=== PATIENT | female | born 1995 | race African-American/Black ===

== ENCOUNTER 2022-12-12 06:40 | Inpatient (IN) | payer OTHER ==
[2022-12-12] MEDS ORDERED: ACETAMINOPHEN 325 MG TABLET (FP) PO PRN ×2 (07:54→10:15)
[2022-12-12] MEDS ORDERED: morphine SULFATE/PF 1 MG/2 ML (2cc Syringe - QUVA) EP ONE (07:54)
[2022-12-12] MEDS ORDERED: ONDANSETRON 4 MG/2 ML VIAL IVPUSH PRN (07:54)
[2022-12-12] MEDS ORDERED: CITRIC ACID/SODIUM CITRATE 30 ML UNIT-DOSE CUP PO ONE (08:18)
[2022-12-12] MEDS ORDERED: ELECTROLYTE-148 SOLN 500 ML IV ONE (08:18)
[2022-12-12] MEDS ORDERED: ELECTROLYTE-148 SOLN 1,000 ML IV SCH (08:30)
[2022-12-12] MEDS ORDERED: SODIUM CHLORIDE 0.9% P/F 10 ML VIAL IJ ONE (08:35)
[2022-12-12] MEDS ORDERED: ceFAZolin SODIUM 1 GM VIAL ONE (08:35)
[2022-12-12] MEDS ORDERED: PHENYLEPHRINE HCL 10 MG/1 ML SINGLE DOSE VIAL ONE (09:10)
[2022-12-12] MEDS ORDERED: OXYTOCIN 10 UNITS/ML VIAL ONE ×2 (09:18→09:47)
[2022-12-12] MEDS ORDERED: FENTANYL CITRATE/PF 50 MCG/ML VIAL ONE ×2 (09:30→10:09)
[2022-12-12] MEDS ORDERED: MIDAZOLAM HCL 2 MG/2 ML SINGLE DOSE VIAL ONE (09:30)
[2022-12-12] MEDS ORDERED: METOCLOPRAMIDE HCL INJECTION 10 MG/2 ML VIAL ONE (09:39)
[2022-12-12] MEDS ORDERED: KETOROLAC TROMETHAMINE 30 MG/1 ML VIAL ONE (09:51)
[2022-12-12] MEDS ORDERED: IBUPROFEN 800 MG/8 ML IJ IVPB PRN (10:15)
[2022-12-12] MEDS ORDERED: METHYLERGONOVINE MALEATE 0.2 MG/1 ML AMP IM PRN (10:15)
[2022-12-12] MEDS ORDERED: IBUPROFEN 600 MG TABLET (FP) PO PRN (10:15)
[2022-12-12] MEDS ORDERED: OXYTOCIN 20 UNITS in 0.9% NS 20 UNIT/1,000 ML INFUS.BAG IV SCH (10:15)
[2022-12-12 11:55] VITALS: BMI 29.1
[2022-12-12] MEDS ORDERED: PROMETHAZINE HCL 25 MG/1 ML VIAL IVPB PRN (15:37)
[2022-12-12] MEDS ORDERED: METOCLOPRAMIDE HCL INJECTION 10 MG/2 ML VIAL IVPUSH ONE (15:40)
[2022-12-12] MEDS: FERROUS SO4 325 MG TABLET (FP) PO SCH (22:08)
[2022-12-13] MEDS: SIMETHICONE 80 MG TAB.CHEW (FP) PO PRN ×4 (02:57→19:07)
[2022-12-13] MEDS: IBUPROFEN 600 MG TABLET (FP) PO PRN ×4 (02:57→22:11)
[2022-12-13] MEDS: oxyCODONE HCL 5 MG TABLET PO PRN ×2 (05:47→19:10)
[2022-12-13 09:08] LABS: BASO % 0.2 % (0-2.0); EOS % 0.2 % (0-4.5); HEMATOCRIT 24.9 % (32.4-45.2); HEMOGLOBIN 8.4 GM/dL (10.7-15.3); LYMPH % 10.5 % (8-40); MCH 27.7 pg (25.7-33.7); MCHC 33.6 g/dl (32.0-36.0); MEAN CELL VOLUME 82.5 fl (80-96); MEAN PLT VOLUME 10.3 fl (7.5-11.1); MONO % 6.4 % (3.8-10.2); NEUT % 82.7 % (42.8-82.8); PLATELET COUNT 147 10^3/uL (134-434); RBC 3.02 M/mm3 (3.60-5.2); RDW 14.7 % (11.6-15.6); WHITE BLOOD COUNT 11.5 K/mm3 (4.0-10.0)
[2022-12-13] MEDS: FERROUS SO4 325 MG TABLET (FP) PO SCH ×2 (09:53→22:11)
[2022-12-13] MEDS: PRENATAL VITAMINS W/ FOLIC ACID TABLET (FP) PO SCH (09:53)
[2022-12-13] MEDS ORDERED: BISACODYL 10 MG SUPP.RECT RC PRN (10:15)
[2022-12-13] MEDS: SENNOSIDES/DOCUSATE COMBO (SENNA PLUS) TABLET (UD) PO PRN (22:11)
[2022-12-14] MEDS: SIMETHICONE 80 MG TAB.CHEW (FP) PO PRN ×3 (03:40→11:47)
[2022-12-14] MEDS: oxyCODONE HCL 5 MG TABLET PO PRN ×2 (03:40→20:21)
[2022-12-14] MEDS: FERROUS SO4 325 MG TABLET (FP) PO SCH ×2 (09:56→22:36)
[2022-12-14] MEDS: PRENATAL VITAMINS W/ FOLIC ACID TABLET (FP) PO SCH (09:56)
[2022-12-14] MEDS: IBUPROFEN 600 MG TABLET (FP) PO PRN (11:47)
[2022-12-14] MEDS: SENNOSIDES/DOCUSATE COMBO (SENNA PLUS) TABLET (UD) PO PRN (22:36)
[2022-12-15] MEDS: oxyCODONE HCL 5 MG TABLET PO PRN (00:54)
[2022-12-15] MEDS: IBUPROFEN 600 MG TABLET (FP) PO PRN (06:08)
[2022-12-15] MEDS: PRENATAL VITAMINS W/ FOLIC ACID TABLET (FP) PO SCH (10:39)
[2022-12-15] MEDS: FERROUS SO4 325 MG TABLET (FP) PO SCH (10:39)
[2022-12-15 10:43] VITALS: BP 124/67; PULSE 87; RESP 16; TEMP 98.1
== END 2022-12-15 17:07 | disposition home or self-care (01) | DRG 540 ==
LOC: JLDR 06:40 → J3W 13:15
PROVIDERS: ADMIT Obstetrics & Gynecology; ATTEND Obstetrics & Gynecology
PROC: 10D00Z1 Extraction of Products of Conception, Low, Open Approach (ICD-10-PCS; principal; 2022-12-12)
DX: O34.211 Maternal care for low transverse scar from previous cesarean delivery (principal); Z3A.39 39 weeks gestation of pregnancy; Z37.0 Single live birth
CPT/HCPCS: 36415; 85025; 88307-TC; 94010